=== PATIENT | female | born 1980 | race Caucasian/White ===

== ENCOUNTER 2016-10-07 13:20 | Emergency (ER) | payer OTHER ==
--- NOTE | 2016-10-07 13:46 | ED CLINICAL REPORT ---
Clinical Report - Physicians/Mid Levels [facility] [address] [place] [address] 10/07/2016 13:25 Patient: MARIELLA COLINDRES Time Seen: 13:34; initial patient contact. Arrived- By private vehicle. Historian- patient. HISTORY OF PRESENT ILLNESS Chief Complaint: SKIN RASH. (burning rash to the right back for several days, has a history of C1 deficiency and used all of her medication...needs more pain meds, she takes soma, and something for the pain..). It is described as itchy, painful and burning. It has been located on the right back. A cause has been identified. No recent medication, insect bite or food exposure. Was not recently exposed to poison christso. Similar symptoms previously: None. Recent medical care: The patient was seen recently at another facility in a clinic. REVIEW OF SYSTEMS No fever, sore throat or enlarged lymph nodes. All systems otherwise negative, except as recorded above. PAST HISTORY See nurses notes. Hives. Tetanus immunization status is up-to-date. Problems: Hereditary angio edema. Medications: Soma Oral. SOCIAL HISTORY Never smoker. No alcohol use or drug use. FAMILY HISTORY Negative. ADDITIONAL NOTES The nursing notes have been reviewed with agreement regarding the chief complaint, HPI, ROS, PMH and patient medications and allergies. PHYSICAL EXAM Appearance: Alert. Oriented X3. No acute distress. Eyes: Pupils equal, round and reactive to light. Conjunctivae and eyelids normal. Respiratory: No respiratory distress. Breath sounds normal. Abdomen: Nontender. Skin: Skin warm and dry. Normal skin color. Normal skin turgor. No tender indurated area. No cellulitis. Mild, well-demarcated, erythematous, tender, papular skin rash with an erythematous base on the right breast, back and waist area. No abscess. Neuro: Oriented X 3. No motor deficit. No sensory deficit. PROGRESS AND PROCEDURES Course of Care: Patient is stable. CLINICAL IMPRESSION Herpes zoster with postherpetic neuralgia. INSTRUCTIONS No restrictions to activity. Warnings: Further evaluation is necessary. It is very important to follow up with a physician. Your Current Medications: CONTINUE TAKING THE FOLLOWING MEDICATIONS: Ruconest Intravenous : Solution Reconstituted 2100 unit, every 3rd day. Soma Oral : 325 mg x 3 2x a day. Zofran Oral. Prescription Medications: Valtrex 1000 mg: take 1 tab orally every 8 hours for 7 days. No refills. Substitution is permissible. Soma 350 mg: take 1-2 orally every 12 hours as needed for pain. Dispense ten (10). No refill. Substitution is permissible. Lidoderm patch 5% apply topically as instructed 12 hours on and 12 hours off prn pain. disp #10. 0rf. Follow-up: Follow up with your doctor Saturday as scheduled. Understanding of the discharge instructions verbalized by patient. (Electronically signed by Stefania Valenzuela PA-C 10/07/2016 16:56)
--- NOTE | 2016-10-07 13:46 | ED CLINICAL REPORT ---
Clinical Report - Physicians/Mid Levels [facility] [address] [place] [address] 10/07/2016 13:25 Patient: MARIELLA COLINDRES Time Seen: 13:34; initial patient contact. Arrived- By private vehicle. Historian- patient. HISTORY OF PRESENT ILLNESS Chief Complaint: SKIN RASH. (burning rash to the right back for several days, has a history of C1 deficiency and used all of her medication...needs more pain meds, she takes soma, and something for the pain..). It is described as itchy, painful and burning. It has been located on the right back. A cause has been identified. No recent medication, insect bite or food exposure. Was not recently exposed to poison christos. Similar symptoms previously: None. Recent medical care: The patient was seen recently at another facility in a clinic. REVIEW OF SYSTEMS No fever, sore throat or enlarged lymph nodes. All systems otherwise negative, except as recorded above. PAST HISTORY See nurses notes. Hives. Tetanus immunization status is up-to-date. Problems: Hereditary angio edema. Medications: Soma Oral. SOCIAL HISTORY Never smoker. No alcohol use or drug use. FAMILY HISTORY Negative. ADDITIONAL NOTES The nursing notes have been reviewed with agreement regarding the chief complaint, HPI, ROS, PMH and patient medications and allergies. PHYSICAL EXAM Appearance: Alert. Oriented X3. No acute distress. Eyes: Pupils equal, round and reactive to light. Conjunctivae and eyelids normal. Respiratory: No respiratory distress. Breath sounds normal. Abdomen: Nontender. Skin: Skin warm and dry. Normal skin color. Normal skin turgor. No tender indurated area. No cellulitis. Mild, well-demarcated, erythematous, tender, papular skin rash with an erythematous base on the right breast, back and waist area. No abscess. Neuro: Oriented X 3. No motor deficit. No sensory deficit. PROGRESS AND PROCEDURES Course of Care: Patient is stable. CLINICAL IMPRESSION Herpes zoster with postherpetic neuralgia. INSTRUCTIONS No restrictions to activity. Warnings: Further evaluation is necessary. It is very important to follow up with a physician. Your Current Medications: CONTINUE TAKING THE FOLLOWING MEDICATIONS: Ruconest Intravenous : Solution Reconstituted 2100 unit, every 3rd day. Soma Oral : 325 mg x 3 2x a day. Zofran Oral. Prescription Medications: Valtrex 1000 mg: take 1 tab orally every 8 hours for 7 days. No refills. Substitution is permissible. Soma 350 mg: take 1-2 orally every 12 hours as needed for pain. Dispense ten (10). No refill. Substitution is permissible. Lidoderm patch 5% apply topically as instructed 12 hours on and 12 hours off prn pain. disp #10. 0rf. Follow-up: Follow up with your doctor Saturday as scheduled. Understanding of the discharge instructions verbalized by patient. (Electronically signed by Stefania Valenzuela PA-C 10/07/2016 16:56)
--- NOTE | 2016-10-07 13:46 | ED NURSING NOTES ---
Clinical Report - Nurses [facility] [address] [place] [address] 10/07/2016 13:25 Patient: MARIELLA COLINDRES TRIAGE Acuity: LEVEL 4. Chief Complaint: SKIN RASH. Alert. No acute distress. SEPSIS SCREEN: Sepsis Screen. Negative (no infection suspected/documented). --13:43 Marlene Max R.N. 13:34 10/07/16. BP: 159/92. HR: 105. RR: 22. O2 saturation: 98% on room air. Temp: 98.2 F (oral). Pain level now: 12/13. --13:43 Marlene Max R.N. Weight: 95.2 kg stated. Height/Length: 67 inches Per Patient. BMI: 32.9. --13:43 Marlene Max R.N. Medications Soma Oral 325 mg x 3, 2x a day. --13:37 Marlene Max R.N. Ruconest Intravenous (Solution Reconstituted 2100 unit), every 3rd day. --13:40 Marlene Max R.N. Zofran Oral. --13:40 Marlene Max R.N. The following entry was struck and corrected by Marlene Max R.N., 13:40 (10/07/16) Reason for correction - other(correction). <<STRICKEN ENTRY-- Soma Oral. --13:37 Marlene Max R.N. --END STRIKE>>. Medication/allergy information source: the patient. --13:43 Marlene Max R.N. Allergies Venoms. --13:41 Marlene Max R.N. History Arrived by private vehicle. Historian: patient. Accompanied by (sig other). Primary physician (none). Reported as located on the back. Onset. (4 days ago). It is described as painful. PAST MEDICAL HX: Immunizations: up-to-date. SOCIAL HX: Never smoker. Occasional alcohol use. History of heavy drug use: marijuana. FALL RISK ASSESSMENT: Fall risk assessment completed. No fall risk identified. NUTRITIONAL RISK ASSESSMENT: The nutritional risk assessment revealed no deficiencies. FUNCTIONAL ASSESSMENT: Functional assessment: no impairments noted. LEARNING NEEDS ASSESSMENT: The learning needs assessment revealed no barriers. SKIN INTEGRITY ASSESSMENT: Skin integrity risk assessment completed. No skin integrity risk identified. --13:43 Marlene Max R.N. PROBLEMS: Hereditary angio edema. --13:36 Marlene Max R.N. ADDITIONAL SURGERIES: Appendectomy. --13:42 Marlene Max R.N. Assessment GENERAL / NEURO / PSYCH: Alert. Oriented X 4. Appears in no acute distress. Cheryl Coma Scale: 15- eyes open spontaneously (4); best verbal response- oriented x 4 (5); best motor response- obeys commands (6). Patient appears calm and cooperative. RESPIRATORY: Respirations not labored. CVS: Capillary refill less than 2 seconds. GI / : Abdomen soft and nontender. SKIN: Mucous membranes are pink. Skin is warm and dry. --13:43 Marlene Max R.N. Interventions ID band on patient. To treatment room. --13:43 Marlene Max R.N. NURSING PROGRESS NOTES Two patient identifiers checked. Call light placed in reach. Side rails up x 1. Patient ready for evaluation- chart flagged and PA notified. --14:56 Marlene Max R.N. DISPOSITION / DISCHARGE Departure time: 13:50 Oct 07 2016. Condition at departure: improved and stable. No learning barriers present. Discharge instructions provided and reviewed with the patient. Reviewed medication(s) side effects, precautions and dosing information. Prescription(s) given to the patient. Patient verbalized understanding. Written instructions provided in Swedish. The patient was discharged by the physician retail store assistant. She was discharged home and accompanied by industrial yard brake coupler. She left the Emergency Department ambulatory and via private vehicle. --14:57 Marlene Max R.N. Locked/Released at 10/07/2016 14:58 by Marlene Max R.N.
--- NOTE | 2016-10-07 13:46 | ED NURSING NOTES ---
Clinical Report - Nurses [facility] [address] [place] [address] 10/07/2016 13:25 Patient: MARIELLA COLINDRES TRIAGE Acuity: LEVEL 4. Chief Complaint: SKIN RASH. Alert. No acute distress. SEPSIS SCREEN: Sepsis Screen. Negative (no infection suspected/documented). --13:43 Marlene Max R.N. 13:34 10/07/16. BP: 159/92. HR: 105. RR: 22. O2 saturation: 98% on room air. Temp: 98.2 F (oral). Pain level now: 12/13. --13:43 Marlene Max R.N. Weight: 95.2 kg stated. Height/Length: 67 inches Per Patient. BMI: 32.9. --13:43 Marlene Max R.N. Medications Soma Oral 325 mg x 3, 2x a day. --13:37 Marlene Max R.N. Ruconest Intravenous (Solution Reconstituted 2100 unit), every 3rd day. --13:40 Marlene Max R.N. Zofran Oral. --13:40 Marlene Max R.N. The following entry was struck and corrected by Marlene Max R.N., 13:40 (10/07/16) Reason for correction - other(correction). <<STRICKEN ENTRY-- Soma Oral. --13:37 Marlene Max R.N. --END STRIKE>>. Medication/allergy information source: the patient. --13:43 Marlene Max R.N. Allergies Venoms. --13:41 Marlene Max R.N. History Arrived by private vehicle. Historian: patient. Accompanied by (sig other). Primary physician (none). Reported as located on the back. Onset. (4 days ago). It is described as painful. PAST MEDICAL HX: Immunizations: up-to-date. SOCIAL HX: Never smoker. Occasional alcohol use. History of heavy drug use: marijuana. FALL RISK ASSESSMENT: Fall risk assessment completed. No fall risk identified. NUTRITIONAL RISK ASSESSMENT: The nutritional risk assessment revealed no deficiencies. FUNCTIONAL ASSESSMENT: Functional assessment: no impairments noted. LEARNING NEEDS ASSESSMENT: The learning needs assessment revealed no barriers. SKIN INTEGRITY ASSESSMENT: Skin integrity risk assessment completed. No skin integrity risk identified. --13:43 Marlene Max R.N. PROBLEMS: Hereditary angio edema. --13:36 Marlene Max R.N. ADDITIONAL SURGERIES: Appendectomy. --13:42 Marlene Max R.N. Assessment GENERAL / NEURO / PSYCH: Alert. Oriented X 4. Appears in no acute distress. Cheryl Coma Scale: 15- eyes open spontaneously (4); best verbal response- oriented x 4 (5); best motor response- obeys commands (6). Patient appears calm and cooperative. RESPIRATORY: Respirations not labored. CVS: Capillary refill less than 2 seconds. GI / : Abdomen soft and nontender. SKIN: Mucous membranes are pink. Skin is warm and dry. --13:43 Marlene Max R.N. Interventions ID band on patient. To treatment room. --13:43 Marlene Max R.N. NURSING PROGRESS NOTES Two patient identifiers checked. Call light placed in reach. Side rails up x 1. Patient ready for evaluation- chart flagged and PA notified. --14:56 Marlene Max R.N. DISPOSITION / DISCHARGE Departure time: 13:50 Oct 07 2016. Condition at departure: improved and stable. No learning barriers present. Discharge instructions provided and reviewed with the patient. Reviewed medication(s) side effects, precautions and dosing information. Prescription(s) given to the patient. Patient verbalized understanding. Written instructions provided in Latvian. The patient was discharged by the physician branch assistant. She was discharged home and accompanied by garage door hanger. She left the Emergency Department ambulatory and via private vehicle. --14:57 Marlene Max R.N. Locked/Released at 10/07/2016 14:58 by Marlene Max R.N.
--- NOTE | 2016-10-07 16:56 | ED MED RECONCILIATION SUMMARY ---
Patient: MARIELLA COLINDRES Medication Reconciliation Report [facility] VisitID: [id number] [address] [place] [address] 35y, F Registration Date/Time: 10/07/2016 Weight: 95.2 kg Height/Length: 67 in. BMI: 32.9 ALLERGIES: Venoms The patient's Home Medications are listed below: CONTINUE TAKING THE FOLLOWING MEDICATIONS: Ruconest Intravenous (2100 unit), every 3rd day Soma Oral 325 mg x 3, 2x a day Zofran Oral The source(s) of the original Home Medication information: patient The following Medications were given to the patient in the Emergency Department: None. The following Medications were prescribed to the patient: Lidoderm patch 5% apply topically as instructed 12 hours on and 12 hours off prn pain. disp #10. 0rf. -- Stefania Valenzuela PA-C Valtrex 1000 mg: take 1 tab orally every 8 hours for 7 days. No refills. Substitution is permissible. -- Stefania Valenzuela PA-C Soma 350 mg: take 1-2 orally every 12 hours as needed for pain. Dispense ten (10). No refill. Substitution is permissible. -- Stefania Valenzuela PA-C
--- NOTE | 2016-10-07 16:56 | ED MAR SUMMARY ---
..... Medication Administration Record [facility] [address] [place], [place] [id number] Patient: MARIELLA COLINDRES Visit ID: [id number] 35y, F Weight: 95.2 kg Height/Length: 67 in BMI: 32.9 ALLERGIES: Venoms
--- NOTE | 2016-10-07 16:56 | ED MAR SUMMARY ---
..... Medication Administration Record [facility] [address] [place], [place] [id number] Patient: MARIELLA COLINDRES Visit ID: [id number] 35y, F Weight: 95.2 kg Height/Length: 67 in BMI: 32.9 ALLERGIES: Venoms
--- NOTE | 2016-10-07 16:56 | ED MED RECONCILIATION SUMMARY ---
Patient: MARIELLA COLINDRES Medication Reconciliation Report [facility] VisitID: [id number] [address] [place] [address] 35y, F Registration Date/Time: 10/07/2016 Weight: 95.2 kg Height/Length: 67 in. BMI: 32.9 ALLERGIES: Venoms The patient's Home Medications are listed below: CONTINUE TAKING THE FOLLOWING MEDICATIONS: Ruconest Intravenous (2100 unit), every 3rd day Soma Oral 325 mg x 3, 2x a day Zofran Oral The source(s) of the original Home Medication information: patient The following Medications were given to the patient in the Emergency Department: None. The following Medications were prescribed to the patient: Lidoderm patch 5% apply topically as instructed 12 hours on and 12 hours off prn pain. disp #10. 0rf. -- Stefania Valenzuela PA-C Valtrex 1000 mg: take 1 tab orally every 8 hours for 7 days. No refills. Substitution is permissible. -- Stefania Valenzuela PA-C Soma 350 mg: take 1-2 orally every 12 hours as needed for pain. Dispense ten (10). No refill. Substitution is permissible. -- Stefania Valenzuela PA-C
--- NOTE | 2016-10-07 16:56 | ED DISCHARGE INSTRUCTIONS ---
Patient: MARIELLA COLINDRES General Instructions [facility] VisitID: [id number] [address] [place] [address] 35y, F Registration Date/Time: 10/07/2016 Herpes zoster with postherpetic neuralgia. INSTRUCTIONS No restrictions to activity. Warnings: Further evaluation is necessary. It is very important to follow up with a physician. Your Current Medications: CONTINUE TAKING THE FOLLOWING MEDICATIONS: Ruconest Intravenous : Solution Reconstituted 2100 unit, every 3rd day. Soma Oral : 325 mg x 3 2x a day. Zofran Oral. Prescription Medications: Valtrex 1000 mg: take 1 tab orally every 8 hours for 7 days. No refills. Substitution is permissible. Soma 350 mg: take 1-2 orally every 12 hours as needed for pain. Dispense ten (10). No refill. Substitution is permissible. Lidoderm patch 5% apply topically as instructed 12 hours on and 12 hours off prn pain. disp #10. 0rf. Follow-up: Follow up with your doctor Saturday as scheduled. Understanding of the discharge instructions verbalized by patient. ADDITIONAL INFORMATION Shingles Anyone who has had chicken pox may get shingles later in life. It is caused by the same virus that has remained dormant (asleep) in your body. Shingles usually occurs in adults over the age of 50 or those with lowered immunity (cancer treatment, prolonged steroid use, HIV or AIDS). It starts as a tingling patch of skin on one side of the body. During the first several days small painful blisters appear in this area. However, unlike chicken pox the rash does not spread to the rest of the body. The blister fluid contains the virus. Exposure to shingles cannot cause shingles. However, it can cause chicken pox in anyone who has never had chicken pox before. The contagious period ends when all blisters have crusted over (usually about two weeks after the illness begins). Scarring may occur where the blisters appear. Sometimes there is continued sensitivity and pain in the involved patch of skin for months after the infection (neuralgia). Persons older than 50 or those with a weakened immune system may be treated with antiviral medicines to reduce pain, shorten the illness and prevent neuralgia. Zostavax is a vaccine that can help prevent shingles or make it less painful. It is recommended for adults over the age of 60 who have had chicken pox in the past, but not shingles. Adults over 60 who have had neither chicken pox nor shingles can prevent both diseases with a Varicella vaccine. Home Care: You may use acetaminophen (Tylenol) or ibuprofen (Motrin, Advil) to control pain, unless another medicine was prescribed. [NOTE: If you have chronic liver or kidney disease or ever had a stomach ulcer or GI bleeding, talk with your doctor before using these medicines.] (Aspirin should never be used in anyone under 18 years of age who is ill with a fever. It may cause severe liver damage.) To relieve itching and pain, make a solution of cool water mixed with cornstarch, baking soda, Aveeno Oatmeal, or Domeboro powder (available without a prescription). Apply the solution as a compress to the area. This will soothe the skin. Calamine or Caladryl lotion may help. Oral Benadryl (diphenhydramine) is an antihistamine available at drug and grocery stores. Unless a prescription antihistamine was given, Benadryl may be used to reduce itching if large areas of the skin are involved. Use lower doses during the daytime and higher doses at bedtime since the drug may make you sleepy. [NOTE: Do not use Benadryl if you have glaucoma or if you are a man with trouble urinating due to an enlarged prostate.] Claritin (loratidine) is an antihistamine that causes less drowsiness and is a good alternative for daytime use. Wash skin with soap and water to keep rash free of infection. Trim fingernails to prevent scratching. Scratching the sores may leave scars. Stay home from work or school until all blisters have formed a crust and you are no longer contagious. Follow Up with your doctor or as directed by our staff if the above measures do not bring relief. GET PROMPT MEDICAL ATTENTION if any of the following occur: Headache or stiff neck Increasing drowsiness, confusion or bizarre behavior Cough with trouble breathing or fast breathing (over 25 breaths per minute) Pain, redness or swelling of a joint Fever of 100.4F (38C) or higher, or as directed by your healthcare provider Eye pain or changes in vision or sores that appear near the eye Signs of skin infection (yellow or white drainage from the sores, increasing redness or pain) Weakness or numbness of an arm or leg Difficulty speaking, swallowing or walking Seizure You have been given the following additional information: Herpes Zoster No restrictions to activity. (Electronically signed by Stefania Valenzuela PA-C 10/07/2016 16:56)
== END 2016-10-07 13:52 | disposition home or self-care (01) ==
LOC: ED SRH 13:20
DX: B02.29 Other postherpetic nervous system involvement (principal); Z91.09 Other allergy status, other than to drugs and biological substances